=== PATIENT | male | born 1955 | race Caucasian/White ===

== ENCOUNTER 2020-11-18 09:15 | Outpatient (RCR) | payer MEDICARE, SELFPAY ==
[2020-10-21 10:11] VITALS: BP 178/97; PULSE 89; RESP 18; TEMP 36.9; BMI 25.6
--- NOTE | 2020-10-21 13:06 | HP.PCM_ITS ---
(1) Ulcer of right foot with fat layer exposed Status: Chronic Code(s): L97.512 - Non-pressure chronic ulcer of other part of right foot with fat layer exposed History of Present Illness Date of Service: 10/21/20 Chief Complaint: Non healing right foot ulcer History of Wound: Mr. Fregoso is a 35-year-old who was referred here by his primary care physician due to nonhealing right foot ulcer. Sustained ulcer in August from frostbite. He states that he has tried to manage it at home however area left has shown no significant improvement. Most of the ulcer is healed. History of diabetes however lost a significant amount of weight and is currently not on any medication. Maintains a very active lifestyle. Denies chills, fever otherwise feeling of unwell. Past Medical History Past Medical History: Chronic Problems Ulcer of right foot with fat layer exposed (Chronic) Allergies/Adverse Reactions: Allergies No Known Allergies Allergy (Verified 05/12/15 09:04) Home Medications: Ambulatory Orders Medication Instructions Recorded Vit B12/Intrinsic Fact/Folate 10/21/20 [Intrinsi V76-Rupqbo Tablet] Smoking Status: Former smoker Review of Systems Constitutional: Denies: Anorexia, Chills, Fever, Malaise, Weakness Eyes: Denies: Blurred vision, Pain, Redness HEENT: Denies: Difficulty Hearing, Difficulty Swallowing, Head Aches, Sinus Drainage Cardiovascular: Denies: Chest Pain, Claudication, Chest Pressure, Orthopnea Respiratory: Denies: Cough, Hemoptysis, Pleuritic Pain Gastrointestinal: Denies: Abdominal Pain, Hematemesis, Vomiting Genitourinary: Denies: Hematuria Skin: Denies: Jaundice - Physical Exam Vital Signs Temp Pulse Resp BP 98.4 F 89 18 178/97 H 10/21/20 10:11 10/21/20 10:11 10/21/20 10:11 10/21/20 10:11 General: Alert, Oriented x3, Cooperative, No apparent distress HEENT: Atraumatic, Normocephalic Oral: Moist Mucosa Neck: Supple Lungs: Normal air movement Cardiovascular: Regular rate, Regular Rhythm, Normal S1, Normal S2 Abdomen: Soft, Non Tender Extremities: No cyanosis, No edema Skin: Ulcer/ Wound Wound Measurements and Assessment WC - Nurse 1 - General Ulcer Measurement Start: 10/21/20 10:11 Freq: Status: Active Protocol: Activity Type Activity Date Activity User E-Sign Co-Sign Detail Recorded Client Recorded Date Recorded By Document 10/21/20 10:11 DL [id number] 10/21/20 10:30 DL 10/21/20 10:11 Wound Center Nurse 1 [Ulcer Assessment] #1 R Dorsal -Current Size (cm) - Length 0.6 -Current Size (cm) - Width 0.5 -Current Size (cm) - Depth 0.1 -Total Square Cm 0.30 -Photo Taken Yes -Exudate Amt None Present -Wound Margin Flat & Intact -Granulation Amt None Present (0 %) -Necrosis Amt Small (1-33%) -Necrotic Tissue Type Eschar -Structure Exposed N/A -Texture (Leela-wound Skin Appearance) Scarring -Moisture (Leela-wound Skin Appearance No Abnormality ) -Color (Leela-wound Skin Appearance) No Abnormality, Rubor -Temperature (Leela-wound Skin No Abnormality Appearance) (Pt Warm) -Tenderness on Palpation (Leela-wound No Skin Appearance) -Ulcer Cleansing Rinsed/ Irrigated with Saline -Foul Odor after Cleansing No -Anesthetic Used 4% Lidocaine Solution WC - Nurse 2 - General Ulcer CM Notes Start: 10/21/20 10:11 Freq: Status: Active Protocol: Activity Type Activity Date Activity User E-Sign Co-Sign Detail Recorded Client Recorded Date Recorded By Document 10/21/20 11:04 MW [id number] 10/21/20 11:12 MW 10/21/20 11:04 Wound Center Nurse 2 [Procedure/Treatment] -Time 11:04 -Correct Patient Yes -Correct Side, Site, Position Yes -Correct Procedure Yes -Procedure Performed Yes -Type of Procedure Debridement -Clinical Debridement Subcutaneous -Tissue Removed Subcutaneous -Post Debridement (cm) - Length 0.9 -Post Debridement (cm) - Width 0.6 -Post Debridement (cm) - Depth 0.1 -Total Square (Post) (cm) 0.54 -Area of Debridement (cm) - Length 0.9 -Area of Debridement (cm) - Width 0.6 -Total Square (Area) (cm) 0.54 -Tunneling No -Undermining/Tunneling No -Circular Undermining No -Wound/Ulcer Outcome Not Healed -Ulcer Cleansing Rinsed/ Irrigated with Saline -Foul Odor after Cleansing No -Bioengineered Tissue No -Bleeding Controlled with Pressure -Offloading No -Treatment Response Procedure Tolerated Well -Debridement - Subq, 1st 20sq cm Yes [See Physician Procedure note for Specifics] Pain Scale: 0-10 Numeric [Pain] -Is Patient Pain Free? Yes Musculoskeletal: No Muscle Wasting Neurological: Cranial nerves II-XII grossly intact Psych/Mental Status: Normal Affect Debridement Note Post-Debridement Measurements/Treatment WC - Nurse 2 - General Ulcer CM Notes Start: 10/21/20 10:11 Freq: Status: Active Protocol: Activity Type Activity Date Activity User E-Sign Co-Sign Detail Recorded Client Recorded Date Recorded By Document 10/21/20 11:04 MW [id number] 10/21/20 11:12 MW 10/21/20 11:04 Wound Center Nurse 2 #1 R Dorsal -Time 11:04 -Correct Patient Yes -Correct Side, Site, Position Yes -Correct Procedure Yes -Procedure Performed Yes -Type of Procedure Debridement -Clinical Debridement Subcutaneous -Tissue Removed Subcutaneous -Post Debridement (cm) - Length 0.9 -Post Debridement (cm) - Width 0.6 -Post Debridement (cm) - Depth 0.1 -Total Square (Post) (cm) 0.54 -Area of Debridement (cm) - Length 0.9 -Area of Debridement (cm) - Width 0.6 -Total Square (Area) (cm) 0.54 -Tunneling No -Undermining/Tunneling No -Circular Undermining No -Wound/Ulcer Outcome Not Healed -Ulcer Cleansing Rinsed/ Irrigated with Saline -Foul Odor after Cleansing No -Bioengineered Tissue No -Bleeding Controlled with Pressure -Offloading No -Treatment Response Procedure Tolerated Well -Debridement - Subq, 1st 20sq cm Yes Pain Scale: 0-10 Numeric Is Patient Pain Free? Yes Wound debrided: Right dorsal foot Type of Debridement: Excisional debridement Anesthesia Used: 4% Lidocaine Solution Depth: Down to and including healthy tissue, in the subcutaneous layer Percentage of wound debrided: 100 Instrument Used: 3mm curette, Forceps Tissue Removed: Slough and devitalized tissue Severity: Fat Layer Exposed Bleeding Controlled with: Pressure Patient tolerated procedure well Assessment/Plan Active Problems Ulcer of right foot with fat layer exposed (Chronic) Assessment: Right dorsal foot ulcer following frostbite. Plan: Debridement done as documented above, procedure was well-tolerated. Promogran daily with Adaptic over top. Elevate lower extremities when seated and in bed. Increase protein intake. Vitamin C and zinc also recommended. His questions were answered and he was advised to call with any further questions or concerns. Follow-up in a week. This note was generated with [employer] dictation software. It may contain incorrect words, spelling, and punctuation that were not noted in checking the note before signing. Multi Select Codes - Visit Charges Office Visit/Consults: 80237 OV L3 New - Integumentary Integumentary CPT Codes: 16763 Antoinette subq tissue 20 sq cm/<
[2020-10-28 08:13] VITALS: BP 160/85; PULSE 91; RESP 17; TEMP 36.3; BMI 25.6
--- NOTE | 2020-10-28 08:59 | PCM.WC.PN ---
(1) Ulcer of right foot with fat layer exposed Status: Chronic Code(s): L97.512 - Non-pressure chronic ulcer of other part of right foot with fat layer exposed Type of Wound Date of Service: 10/28/20 Chief Complaint: Non healing right foot ulcer History of Wound: Mr. Fregoso is a 35-year-old who was referred here by his primary care physician due to nonhealing right foot ulcer. Sustained ulcer in August from frostbite. He states that he has tried to manage it at home however area left has shown no significant improvement. Most of the ulcer is healed. History of diabetes however lost a significant amount of weight and is currently not on any medication. Maintains a very active lifestyle. Denies chills, fever otherwise feeling of unwell. Progress of Wound: Some improvement noted. He denies any new concerns at this time. - Physical Exam Vital Signs Temp Pulse Resp BP 97.3 F L 91 17 160/85 H 10/28/20 08:13 10/28/20 08:13 10/28/20 08:13 10/28/20 08:13 General: Alert, Oriented x3, Cooperative, No apparent distress HEENT: Atraumatic, Normocephalic Oral: Moist Mucosa Neck: Supple Lungs: Normal air movement Extremities: No cyanosis Skin: Ulcer/ Wound Wound Measurements and Assessment WC - Nurse 1 - General Ulcer Measurement Start: 10/21/20 10:11 Freq: Status: Active Protocol: Activity Type Activity Date Activity User E-Sign Co-Sign Detail Recorded Client Recorded Date Recorded By Document 10/28/20 08:13 MS [id number] 10/28/20 08:19 MS 10/28/20 08:13 Wound Center Nurse 1 [Ulcer Assessment] #1 R Dorsal -Current Size (cm) - Length 0.8 -Current Size (cm) - Width 0.4 -Current Size (cm) - Depth 0.2 -Total Square Cm 0.32 -Exudate Amt Small -Exudate Type Serous -Wound Margin Distinct, Outline Attached -Granulation Amt Small (1-33%) -Slough/Fibrin Yes -Necrosis Amt Medium (34-66%) -Texture (Leela-wound Skin Appearance) No Abnormality -Moisture (Leela-wound Skin Appearance No Abnormality ) -Color (Leela-wound Skin Appearance) No Abnormality -Temperature (Leela-wound Skin No Abnormality Appearance) (Pt Warm) -Tenderness on Palpation (Leela-wound No Skin Appearance) -Ulcer Cleansing Rinsed/ Irrigated with Saline -Foul Odor after Cleansing No -Anesthetic Used 4% Lidocaine Solution WC - Nurse 2 - General Ulcer CM Notes Start: 10/21/20 10:11 Freq: Status: Active Protocol: Activity Type Activity Date Activity User E-Sign Co-Sign Detail Recorded Client Recorded Date Recorded By Document 10/28/20 08:41 MW [id number] 10/28/20 08:47 MW 10/28/20 08:41 Wound Center Nurse 2 [Procedure/Treatment] -Time 08:42 -Correct Patient Yes -Correct Side, Site, Position Yes -Correct Procedure Yes -Procedure Performed Yes -Type of Procedure Debridement -Clinical Debridement Subcutaneous -Tissue Removed Subcutaneous -Post Debridement (cm) - Length 0.6 -Post Debridement (cm) - Width 0.6 -Post Debridement (cm) - Depth 0.1 -Total Square (Post) (cm) 0.36 -Area of Debridement (cm) - Length 0.6 -Area of Debridement (cm) - Width 0.6 -Total Square (Area) (cm) 0.36 -Tunneling No -Undermining/Tunneling No -Circular Undermining No -Wound/Ulcer Outcome Not Healed -Ulcer Cleansing Rinsed/ Irrigated with Saline -Foul Odor after Cleansing No -Bioengineered Tissue No -Bleeding Controlled with Pressure -Offloading No -Treatment Response Procedure Tolerated Well -Debridement - Subq, 1st 20sq cm Yes [See Physician Procedure note for Specifics] Pain Scale: 0-10 Numeric [Pain] -Is Patient Pain Free? Yes Musculoskeletal: No Muscle Wasting Neurological: Cranial nerves II-XII grossly intact Psych/Mental Status: Normal Affect Debridement Note Post-Debridement Measurements/Treatment - Nurse 2 - General Ulcer CM Notes Start: 10/21/20 10:11 Freq: Status: Active Protocol: Activity Type Activity Date Activity User E-Sign Co-Sign Detail Recorded Client Recorded Date Recorded By Document 10/21/20 11:04 MW [id number] 10/21/20 11:12 MW Document 10/28/20 08:41 MW [id number] 10/28/20 08:47 MW 10/21/20 10/28/20 11:04 08:41 Wound Center Nurse 2 #1 R Dorsal -Time 11:04 08:42 -Correct Patient Yes Yes -Correct Side, Site, Position Yes Yes -Correct Procedure Yes Yes -Procedure Performed Yes Yes -Type of Procedure Debridement Debridement -Clinical Debridement Subcutaneous Subcutaneous -Tissue Removed Subcutaneous Subcutaneous -Post Debridement (cm) - Length 0.9 0.6 -Post Debridement (cm) - Width 0.6 0.6 -Post Debridement (cm) - Depth 0.1 0.1 -Total Square (Post) (cm) 0.54 0.36 -Area of Debridement (cm) - Length 0.9 0.6 -Area of Debridement (cm) - Width 0.6 0.6 -Total Square (Area) (cm) 0.54 0.36 -Tunneling No No -Undermining/Tunneling No No -Circular Undermining No No -Wound/Ulcer Outcome Not Healed Not Healed -Ulcer Cleansing Rinsed/ Rinsed/ Irrigated with Irrigated with Saline Saline -Foul Odor after Cleansing No No -Bioengineered Tissue No No -Bleeding Controlled with Pressure Pressure -Offloading No No -Treatment Response Procedure Procedure Tolerated Well Tolerated Well -Debridement - Subq, 1st 20sq cm Yes Yes Pain Scale: 0-10 Numeric Is Patient Pain Free? Yes Yes WC - Nurse 3 - General Ulcer D/C NN Start: 10/21/20 10:11 Freq: Status: Active Protocol: Activity Type Activity Date Activity User E-Sign Co-Sign Detail Recorded Client Recorded Date Recorded By Document 10/21/20 11:15 PL [id number] 10/22/20 05:36 PL 10/21/20 11:15 Wound Care Nurse 3 #1 R Dorsal -Ulcer Cleansing Rinsed/ Irrigated with Saline -Foul Odor after Cleansing No -Primary Dressing Applied Promogran -Other Dressing Adaptic -Primary Dressing Covered/Secured with Dry Gauze, Secured with Tape -Promogran 1 Pain Scale: 0-10 Numeric Is Patient Pain Free? Yes Wound debrided: Right Foot ( Dorsal ) Type of Debridement: Excisional debridement Anesthesia Used: 4% Lidocaine Solution Depth: Down to and including healthy tissue, in the subcutaneous layer Percentage of wound debrided: 100 Instrument Used: 3mm curette Tissue Removed: Slough and devitalized tissue Severity: Fat Layer Exposed Amount of bleeding with debridement: Mild Bleeding Controlled with: Pressure Patient tolerated procedure well Assessment/Plan Active Problems Ulcer of right foot with fat layer exposed (Chronic) Assessment: Right dorsal foot ulcer following frostbite. Plan: Debridement done as documented above, procedure was well-tolerated. Cultures taken due to increased pain with debridement. Continue Promogran daily with Adaptic over top. Elevate lower extremities when seated and in bed. Increase protein intake. Vitamin C and zinc also recommended. His questions were answered and he was advised to call with any further questions or concerns. Follow-up in a week. This note was generated with [employer] dictation software. It may contain incorrect words, spelling, and punctuation that were not noted in checking the note before signing. [id number]: [id number] Antoinette subq tissue 20 sq cm/<
[2020-11-04 09:17] VITALS: BP 145/81; PULSE 80; TEMP 36.6; BMI 25.6
--- NOTE | 2020-11-04 13:55 | PCM.WC.PN ---
(1) Ulcer of right foot with fat layer exposed Status: Chronic Code(s): L97.512 - Non-pressure chronic ulcer of other part of right foot with fat layer exposed Type of Wound Date of Service: 11/04/20 Chief Complaint: Non healing right foot ulcer History of Wound: Mr. Fregoso is a 35-year-old who was referred here by his primary care physician due to nonhealing right foot ulcer. Sustained ulcer in August from frostbite. He states that he has tried to manage it at home however area left has shown no significant improvement. Most of the ulcer is healed. History of diabetes however lost a significant amount of weight and is currently not on any medication. Maintains a very active lifestyle. Denies chills, fever otherwise feeling of unwell. Progress of Wound: No new concerns at this time. Cultures with no growth. - Physical Exam Vital Signs Temp Pulse Resp BP 97.8 F 80 17 145/81 H 11/04/20 09:17 11/04/20 09:17 10/28/20 08:13 11/04/20 09:17 General: Alert, Oriented x3, Cooperative, No apparent distress HEENT: Atraumatic, Normocephalic Oral: Moist Mucosa Neck: Supple Lungs: Normal air movement Extremities: No cyanosis Skin: Ulcer/ Wound Wound Measurements and Assessment WC - Nurse 1 - General Ulcer Measurement Start: 10/21/20 10:11 Freq: Status: Active Protocol: Activity Type Activity Date Activity User E-Sign Co-Sign Detail Recorded Client Recorded Date Recorded By Document 11/04/20 09:17 [email or web address] [id number] 11/04/20 09:20 [email or web address] 11/04/20 09:17 Wound Center Nurse 1 [Ulcer Assessment] #1 R Dorsal -Current Size (cm) - Length 0.5 -Current Size (cm) - Width 0.5 -Current Size (cm) - Depth 0.1 -Total Square Cm 0.25 -Exudate Amt Small -Exudate Type Serosanguineous -Wound Margin Distinct, Outline Attached -Granulation Amt Medium (34-66%) -Granulation Quality [place] -Necrosis Amt Small (1-33%) -Necrotic Tissue Type Adherent Slough -Texture (Leela-wound Skin Appearance) Assessed, Scarring -Moisture (Leela-wound Skin Appearance No Abnormality, ) Assessed -Color (Leela-wound Skin Appearance) No Abnormality, Assessed -Temperature (Leela-wound Skin No Abnormality Appearance) (Pt Warm) -Tenderness on Palpation (Leela-wound No Skin Appearance) -Ulcer Cleansing Rinsed/ Irrigated with Saline -Foul Odor after Cleansing No -Anesthetic Used 4% Lidocaine Solution TRA - Nurse 2 - General Ulcer CM Notes Start: 10/21/20 10:11 Freq: Status: Active Protocol: Activity Type Activity Date Activity User E-Sign Co-Sign Detail Recorded Client Recorded Date Recorded By Document 11/04/20 09:50 MW [id number] 11/04/20 09:53 MW 11/04/20 09:50 Wound Center Nurse 2 [Procedure/Treatment] -Time 09:51 -Correct Patient Yes -Correct Side, Site, Position Yes -Correct Procedure Yes -Procedure Performed Yes -Type of Procedure Debridement -Clinical Debridement Subcutaneous -Tissue Removed Subcutaneous -Post Debridement (cm) - Length 0.8 -Post Debridement (cm) - Width 0.7 -Post Debridement (cm) - Depth 0.1 -Total Square (Post) (cm) 0.56 -Area of Debridement (cm) - Length 0.8 -Area of Debridement (cm) - Width 0.7 -Total Square (Area) (cm) 0.56 -Tunneling No -Undermining/Tunneling No -Circular Undermining No -Wound/Ulcer Outcome Not Healed -Ulcer Cleansing Rinsed/ Irrigated with Saline -Foul Odor after Cleansing No -Bioengineered Tissue No -Bleeding Controlled with Pressure -Offloading No -Treatment Response Procedure Tolerated Well -Debridement - Subq, 1st 20sq cm Yes [See Physician Procedure note for Specifics] Pain Scale: 0-10 Numeric [Pain] -Is Patient Pain Free? Yes TRA - Nurse 3 - General Ulcer D/C NN Start: 10/21/20 10:11 Freq: Status: Active Protocol: Activity Type Activity Date Activity User E-Sign Co-Sign Detail Recorded Client Recorded Date Recorded By Document 11/04/20 09:55 MW [id number] 11/04/20 09:56 MW 11/04/20 09:55 Wound Care Nurse 3 [Wound Dressing] #1 R Dorsal -Ulcer Cleansing Rinsed/ Irrigated with Saline -Foul Odor after Cleansing No -Negative Pressure Wound Therapy N/A -Primary Dressing Applied NonAdherent Contact Layer, Promogran -Primary Dressing Covered/Secured Dry Gauze, with Secured with Tape -Promogran 1 [Post Procedure Tolerated] -Treatment Response Procedure Tolerated Well Pain Scale: 0-10 Numeric [Pain] -Is Patient Pain Free? Yes Teaching: Wound Center [Wound Center Education] (Items with an * have Printed Materials Available- Please identify what is given to patient under the Teaching materials given to patient and caregiver Section. Dressing Your Wound -Person Taught Patient -Teaching Method Discussion -Response to teaching Verbalize understanding WC - Visit Discharge [Visit Discharge Information] -Discharge Condition Stable -Ambulatory Status Ambulatory -Transportation Private Auto -Accompanied by self -Medication Reconcilliation completed No & provided to patient/care provider -Clinical Summary of Care Provided Yes Musculoskeletal: No Muscle Wasting Neurological: Cranial nerves II-XII grossly intact Psych/Mental Status: Normal Affect Debridement Note Post-Debridement Measurements/Treatment WC - Nurse 2 - General Ulcer CM Notes Start: 10/21/20 10:11 Freq: Status: Active Protocol: Activity Type Activity Date Activity User E-Sign Co-Sign Detail Recorded Client Recorded Date Recorded By Document 10/21/20 11:04 MW [id number] 10/21/20 11:12 MW Document 10/28/20 08:41 MW [id number] 10/28/20 08:47 MW Document 11/04/20 09:50 MW [id number] 11/04/20 09:53 MW 10/21/20 10/28/20 11/04/20 11:04 08:41 09:50 Wound Center Nurse 2 #1 R Dorsal -Time 11:04 08:42 09:51 -Correct Patient Yes Yes Yes -Correct Side, Site, Position Yes Yes Yes -Correct Procedure Yes Yes Yes -Procedure Performed Yes Yes Yes -Type of Procedure Debridement Debridement Debridement -Clinical Debridement Subcutaneous Subcutaneous Subcutaneous -Tissue Removed Subcutaneous Subcutaneous Subcutaneous -Post Debridement (cm) - Length 0.9 0.6 0.8 -Post Debridement (cm) - Width 0.6 0.6 0.7 -Post Debridement (cm) - Depth 0.1 0.1 0.1 -Total Square (Post) (cm) 0.54 0.36 0.56 -Area of Debridement (cm) - Length 0.9 0.6 0.8 -Area of Debridement (cm) - Width 0.6 0.6 0.7 -Total Square (Area) (cm) 0.54 0.36 0.56 -Tunneling No No No -Undermining/Tunneling No No No -Circular Undermining No No No -Wound/Ulcer Outcome Not Healed Not Healed Not Healed -Ulcer Cleansing Rinsed/ Rinsed/ Rinsed/ Irrigated with Irrigated with Irrigated with Saline Saline Saline -Foul Odor after Cleansing No No No -Bioengineered Tissue No No No -Bleeding Controlled with Pressure Pressure Pressure -Offloading No No No -Treatment Response Procedure Procedure Procedure Tolerated Well Tolerated Well Tolerated Well -Debridement - Subq, 1st 20sq cm Yes Yes Yes Pain Scale: 0-10 Numeric Is Patient Pain Free? Yes Yes Yes - Nurse 3 - General Ulcer D/C NN Start: 10/21/20 10:11 Freq: Status: Active Protocol: Activity Type Activity Date Activity User E-Sign Co-Sign Detail Recorded Client Recorded Date Recorded By Document 10/21/20 11:15 PL [id number] 10/22/20 05:36 PL Document 10/28/20 09:00 MT [id number] 10/28/20 09:01 MT Document 11/04/20 09:55 MW [id number] 11/04/20 09:56 MW 10/21/20 10/28/20 11/04/20 11:15 09:00 09:55 Wound Care Nurse 3 #1 R Dorsal -Ulcer Cleansing Rinsed/ Rinsed/ Irrigated with Irrigated with Saline Saline -Foul Odor after Cleansing No No -Negative Pressure Wound Therapy N/A -Primary Dressing Applied Promogran Promogran NonAdherent Contact Layer, Promogran -Other Dressing Adaptic -Primary Dressing Covered/Secured with Dry Gauze, Dry Gauze,Dry Dry Gauze, Secured with Gauze & Roll Secured with Tape Gauze,Secured Tape with Tape -Promogran 1 1 1 Treatment Response Procedure Tolerated Well Pain Scale: 0-10 Numeric Is Patient Pain Free? Yes Yes Teaching: Wound Center Dressing Your Wound -Person Taught Patient -Teaching Method Discussion -Response to teaching Verbalize understanding WC - Visit Discharge Discharge Condition Stable Stable Ambulatory Status Ambulatory Ambulatory Transportation Private Auto Private Auto Accompanied by self Medication Reconcilliation completed & No No provided to patient/care provider Clinical Summary of Care Provided Yes Yes Wound debrided: Right dorsal foot Type of Debridement: Excisional debridement Anesthesia Used: 4% Lidocaine Solution Depth: Down to and including healthy tissue, in the subcutaneous layer Percentage of wound debrided: 100 Instrument Used: - - 2mm Tissue Removed: Slough and devitalized tissue Severity: Fat Layer Exposed Amount of bleeding with debridement: Mild Bleeding Controlled with: Pressure Patient tolerated procedure well Assessment/Plan Active Problems Ulcer of right foot with fat layer exposed (Chronic) Assessment: Right dorsal foot ulcer following frostbite. Plan: Debridement done as documented above, procedure was well-tolerated. Cultures with no growth.Continue Promogran daily with Adaptic over top. Elevate lower extremities when seated and in bed. Increase protein intake. Vitamin C and zinc also recommended. His questions were answered and he was advised to call with any further questions or concerns. Follow-up in a week. This note was generated with [employer] dictation software. It may contain incorrect words, spelling, and punctuation that were not noted in checking the note before signing. [id number]: [id number] Antoinette subq tissue 20 sq cm/<
[2020-11-11 08:24] VITALS: BP 164/95; PULSE 105; RESP 16; TEMP 37; BMI 25.6
--- NOTE | 2020-11-11 09:40 | PCM.WC.PN ---
(1) Ulcer of right foot with fat layer exposed Status: Chronic Code(s): L97.512 - Non-pressure chronic ulcer of other part of right foot with fat layer exposed Type of Wound Date of Service: 11/11/20 Chief Complaint: Non healing right foot ulcer History of Wound: Mr. Fregoso is a 35-year-old who was referred here by his primary care physician due to nonhealing right foot ulcer. Sustained ulcer in August from frostbite. He states that he has tried to manage it at home however area left has shown no significant improvement. Most of the ulcer is healed. History of diabetes however lost a significant amount of weight and is currently not on any medication. Maintains a very active lifestyle. Denies chills, fever otherwise feeling of unwell. Progress of Wound: No new concerns at this time. Some improvement noted. - Physical Exam Vital Signs Temp Pulse Resp BP 98.6 F 105 H 16 164/95 H 11/11/20 08:24 11/11/20 08:24 11/11/20 08:24 11/11/20 08:24 General: Alert, Oriented x3, Cooperative, No apparent distress HEENT: Atraumatic, Normocephalic Oral: Moist Mucosa Neck: Supple Lungs: Normal air movement Extremities: No cyanosis Skin: Ulcer/ Wound Wound Measurements and Assessment WC - Nurse 1 - General Ulcer Measurement Start: 10/21/20 10:11 Freq: Status: Active Protocol: Activity Type Activity Date Activity User E-Sign Co-Sign Detail Recorded Client Recorded Date Recorded By Document 11/11/20 08:24 MW [id number] 11/11/20 08:30 MW 11/11/20 08:24 Wound Center Nurse 1 [Ulcer Assessment] #1 R Dorsal -Current Size (cm) - Length 0.6 -Current Size (cm) - Width 0.5 -Current Size (cm) - Depth 0.1 -Total Square Cm 0.30 -Photo Taken No -Exudate Amt Small -Exudate Type Serosanguineous -Wound Margin Distinct, Outline Attached -Granulation Amt Large (67-100%) -Granulation Quality Pale,[place] -Necrosis Amt None Present (0 %) -Texture (Leela-wound Skin Appearance) Scarring -Moisture (Leela-wound Skin Appearance No Abnormality ) -Color (Leela-wound Skin Appearance) No Abnormality -Temperature (Leela-wound Skin No Abnormality Appearance) (Pt Warm) -Tenderness on Palpation (Leela-wound No Skin Appearance) -Ulcer Cleansing Wound Cleanser -Foul Odor after Cleansing No -Anesthetic Used 4% Lidocaine Solution TRA - Nurse 2 - General Ulcer CM Notes Start: 10/21/20 10:11 Freq: Status: Active Protocol: Activity Type Activity Date Activity User E-Sign Co-Sign Detail Recorded Client Recorded Date Recorded By Document 11/11/20 08:53 MW [id number] 11/11/20 08:55 MW 11/11/20 08:53 Wound Center Nurse 2 [Procedure/Treatment] -Time 08:53 -Correct Patient Yes -Correct Side, Site, Position Yes -Correct Procedure Yes -Procedure Performed Yes -Type of Procedure Debridement -Clinical Debridement Subcutaneous -Tissue Removed Subcutaneous -Post Debridement (cm) - Length 0.6 -Post Debridement (cm) - Width 0.6 -Post Debridement (cm) - Depth 0.1 -Total Square (Post) (cm) 0.36 -Area of Debridement (cm) - Length 0.6 -Area of Debridement (cm) - Width 0.6 -Total Square (Area) (cm) 0.36 -Tunneling No -Undermining/Tunneling No -Circular Undermining No -Wound/Ulcer Outcome Not Healed -Ulcer Cleansing Rinsed/ Irrigated with Saline -Foul Odor after Cleansing No -Bioengineered Tissue No -Bleeding Controlled with Pressure -Offloading No -Treatment Response Procedure Tolerated Well -Debridement - Subq, 1st 20sq cm Yes [See Physician Procedure note for Specifics] Pain Scale: 0-10 Numeric [Pain] -Is Patient Pain Free? Yes TRA [place] Nurse 3 - General Ulcer D/C NN Start: 10/21/20 10:11 Freq: Status: Active Protocol: Activity Type Activity Date Activity User E-Sign Co-Sign Detail Recorded Client Recorded Date Recorded By Document 11/11/20 08:56 MW [id number] 11/11/20 08:57 MW 11/11/20 08:56 Wound Care Nurse 3 [Wound Dressing] #1 R Dorsal -Ulcer Cleansing Rinsed/ Irrigated with Saline -Foul Odor after Cleansing No -Negative Pressure Wound Therapy N/A -Primary Dressing Applied NonAdherent Contact Layer, Promogran -Primary Dressing Covered/Secured Dry Gauze, with Secured with Tape -Promogran 1 [Post Procedure Tolerated] -Treatment Response Procedure Tolerated Well Pain Scale: 0-10 Numeric [Pain] -Is Patient Pain Free? Yes Teaching: Wound Center [Wound Center Education] (Items with an * have Printed Materials Available- Please identify what is given to patient under the Teaching materials given to patient and caregiver Section. Dressing Your Wound -Person Taught Patient -Teaching Method Discussion -Response to teaching Verbalize understanding WC - Visit Discharge [Visit Discharge Information] -Discharge Condition Stable -Ambulatory Status Ambulatory -Transportation Private Auto -Accompanied by self -Medication Reconcilliation completed No & provided to patient/care provider -Clinical Summary of Care Provided Yes Musculoskeletal: No Muscle Wasting Neurological: Cranial nerves II-XII grossly intact Debridement Note Post-Debridement Measurements/Treatment WC - Nurse 2 - General Ulcer CM Notes Start: 10/21/20 10:11 Freq: Status: Active Protocol: Activity Type Activity Date Activity User E-Sign Co-Sign Detail Recorded Client Recorded Date Recorded By Document 10/21/20 11:04 MW [id number] 10/21/20 11:12 MW Document 10/28/20 08:41 MW [id number] 10/28/20 08:47 MW Document 11/04/20 09:50 MW [id number] 11/04/20 09:53 MW Document 11/11/20 08:53 MW [id number] 11/11/20 08:55 MW 10/21/20 10/28/20 11/04/20 11:04 08:41 09:50 Wound Center Nurse 2 #1 R Dorsal -Time 11:04 08:42 09:51 -Correct Patient Yes Yes Yes -Correct Side, Site, Position Yes Yes Yes -Correct Procedure Yes Yes Yes -Procedure Performed Yes Yes Yes -Type of Procedure Debridement Debridement Debridement -Clinical Debridement Subcutaneous Subcutaneous Subcutaneous -Tissue Removed Subcutaneous Subcutaneous Subcutaneous -Post Debridement (cm) - Length 0.9 0.6 0.8 -Post Debridement (cm) - Width 0.6 0.6 0.7 -Post Debridement (cm) - Depth 0.1 0.1 0.1 -Total Square (Post) (cm) 0.54 0.36 0.56 -Area of Debridement (cm) - Length 0.9 0.6 0.8 -Area of Debridement (cm) - Width 0.6 0.6 0.7 -Total Square (Area) (cm) 0.54 0.36 0.56 -Tunneling No No No -Undermining/Tunneling No No No -Circular Undermining No No No -Wound/Ulcer Outcome Not Healed Not Healed Not Healed -Ulcer Cleansing Rinsed/ Rinsed/ Rinsed/ Irrigated with Irrigated with Irrigated with Saline Saline Saline -Foul Odor after Cleansing No No No -Bioengineered Tissue No No No -Bleeding Controlled with Pressure Pressure Pressure -Offloading No No No -Treatment Response Procedure Procedure Procedure Tolerated Well Tolerated Well Tolerated Well -Debridement - Subq, 1st 20sq cm Yes Yes Yes Pain Scale: 0-10 Numeric Is Patient Pain Free? Yes Yes Yes 11/11/20 08:53 Wound Center Nurse 2 #1 R Dorsal -Time 08:53 -Correct Patient Yes -Correct Side, Site, Position Yes -Correct Procedure Yes -Procedure Performed Yes -Type of Procedure Debridement -Clinical Debridement Subcutaneous -Tissue Removed Subcutaneous -Post Debridement (cm) - Length 0.6 -Post Debridement (cm) - Width 0.6 -Post Debridement (cm) - Depth 0.1 -Total Square (Post) (cm) 0.36 -Area of Debridement (cm) - Length 0.6 -Area of Debridement (cm) - Width 0.6 -Total Square (Area) (cm) 0.36 -Tunneling No -Undermining/Tunneling No -Circular Undermining No -Wound/Ulcer Outcome Not Healed -Ulcer Cleansing Rinsed/ Irrigated with Saline -Foul Odor after Cleansing No -Bioengineered Tissue No -Bleeding Controlled with Pressure -Offloading No -Treatment Response Procedure Tolerated Well -Debridement - Subq, 1st 20sq cm Yes Pain Scale: 0-10 Numeric Is Patient Pain Free? Yes - Nurse 3 - General Ulcer D/C NN Start: 10/21/20 10:11 Freq: Status: Active Protocol: Activity Type Activity Date Activity User E-Sign Co-Sign Detail Recorded Client Recorded Date Recorded By Document 10/21/20 11:15 PL [id number] 10/22/20 05:36 PL Document 10/28/20 09:00 MT [id number] 10/28/20 09:01 MT Document 11/04/20 09:55 MW [id number] 11/04/20 09:56 MW Document 11/11/20 08:56 MW [id number] 11/11/20 08:57 MW 10/21/20 10/28/20 11/04/20 11:15 09:00 09:55 Wound Care Nurse 3 #1 R Dorsal -Ulcer Cleansing Rinsed/ Rinsed/ Irrigated with Irrigated with Saline Saline -Foul Odor after Cleansing No No -Negative Pressure Wound Therapy N/A -Primary Dressing Applied Promogran Promogran NonAdherent Contact Layer, Promogran -Other Dressing Adaptic -Primary Dressing Covered/Secured with Dry Gauze, Dry Gauze,Dry Dry Gauze, Secured with Gauze & Roll Secured with Tape Gauze,Secured Tape with Tape -Promogran 1 1 1 Treatment Response Procedure Tolerated Well Pain Scale: 0-10 Numeric Is Patient Pain Free? Yes Yes Teaching: Wound Center Dressing Your Wound -Person Taught Patient -Teaching Method Discussion -Response to teaching Verbalize understanding WC - Visit Discharge Discharge Condition Stable Stable Ambulatory Status Ambulatory Ambulatory Transportation Private Auto Private Auto Accompanied by self Medication Reconcilliation completed & No No provided to patient/care provider Clinical Summary of Care Provided Yes Yes 11/11/20 08:56 Wound Care Nurse 3 #1 R Dorsal -Ulcer Cleansing Rinsed/ Irrigated with Saline -Foul Odor after Cleansing No -Negative Pressure Wound Therapy N/A -Primary Dressing Applied NonAdherent Contact Layer, Promogran -Other Dressing -Primary Dressing Covered/Secured with Dry Gauze, Secured with Tape -Promogran 1 Treatment Response Procedure Tolerated Well Pain Scale: 0-10 Numeric Is Patient Pain Free? Yes Teaching: Wound Center Dressing Your Wound -Person Taught Patient -Teaching Method Discussion -Response to teaching Verbalize understanding WC - Visit Discharge Discharge Condition Stable Ambulatory Status Ambulatory Transportation Private Auto Accompanied by self Medication Reconcilliation completed & No provided to patient/care provider Clinical Summary of Care Provided Yes Wound debrided: R Dorsal foot Type of Debridement: Excisional debridement Anesthesia Used: 4% Lidocaine Solution Depth: Down to and including healthy tissue, in the subcutaneous layer Percentage of wound debrided: 100 Instrument Used: 3mm curette Tissue Removed: Slough and devitalized tissue Severity: Fat Layer Exposed Amount of bleeding with debridement: Mild Bleeding Controlled with: Pressure Patient tolerated procedure well Assessment/Plan Active Problems Ulcer of right foot with fat layer exposed (Chronic) Assessment: Right dorsal foot ulcer following frostbite. Plan: Debridement done as documented above, procedure was well-tolerated. Some improvement noted. Continue Promogran daily with Adaptic over top. Elevate lower extremities when seated and in bed. Increase protein intake. Vitamin C and zinc also recommended. His questions were answered and he was advised to call with any further questions or concerns. Follow-up in a week. This note was generated with [employer] software. It may contain incorrect words, spelling, and punctuation that were not noted in checking the note before signing. 111xxx-113xx: [id number] Antoinette subq tissue 20 sq cm/<
[2020-11-18 09:11] VITALS: BP 158/74; PULSE 92; TEMP 36.8; BMI 25.6
--- NOTE | 2020-11-18 12:31 | PN.PCM_ITS ---
History of Present Illness Date of Service: 11/18/20 Chief Complaint: Non healing right foot ulcer History of Wound: Mr. Fregoso is a 35-year-old who was referred here by his primary care physician due to nonhealing right foot ulcer. Sustained ulcer in August from frostbite. He states that he has tried to manage it at home however area left has shown no significant improvement. Most of the ulcer is healed. History of diabetes however lost a significant amount of weight and is currently not on any medication. Maintains a very active lifestyle. Denies chills, fever otherwise feeling of unwell. Subjective Subjective: He denies any new concerns at this time. Ulcer said to be improving. Objective Data Objective Data Vital Signs: Vital Signs Temp Pulse Resp BP 98.2 F 92 16 158/74 H 11/18/20 09:11 11/18/20 09:11 11/11/20 08:24 11/18/20 09:11 Oxygen Delivery Method Room Air Weight: 168 lb 9.299 oz Body Mass Index (BMI) 25.6 Finger Stick Blood Glucose 127 Lab / Micro Data Micro: Microbiology 10/28/20 08:45 Wound Abcess - Right Foot Gram Stain - Final 10/28/20 08:45 Wound Abcess - Right Foot Wound Culture - Final No growth aerobically. 10/28/20 08:45 Wound Abcess - Right Foot Anaerobic Culture - Final No anaerobic bacteria isolated. Exam Physical Exam Const alert, oriented x3 and no apparent distress General Appearance: cooperative and comfortable HEENT normocephalic, head/scalp atraumatic and hearing grossly normal bilaterally Eyes EOMs intact bilaterally Neck full ROM and supple General: normal visual inspection Resp normal respiratory effort and normal air movement Extremity normal to inspection and full ROM Skin Wounds: wounds noted Psych mental status grossly normal Appearance: grossly normal Attitude: calm Assessment and Debridement #1 R Dorsal: Post-Debridement Measurements/Treatment - Nurse 1 - General Ulcer Assessment Start: 10/21/20 10:11 Freq: Status: Active Protocol: LIV Activity Type Activity Date Activity User E-Sign Co-Sign Detail Recorded Client Recorded Date Recorded By Document 11/18/20 09:11 [email or web address] [id number] 11/18/20 09:14 [email or web address] 11/18/20 09:11 - Today's Visit Information Type of service Follow-up Visit (Physician/[employer] OPERATOR ) Arrival Mode Ambulatory Patient Identification Verified (Name & Yes ) Patient Requires Transmission-Based No Precautions Height and Weight Body Mass Index (BMI) 25.6 BMI Classification Overweight Vital Signs Temperature (97.8 F-99.1 F) 98.2 F Temperature Source Temporal Pulse Rate (60-100) 92 Pulse Location Monitor Blood Pressure (90/60-120/80) 158/74 H Blood Pressure Mean (mm Hg) 102 Source Monitor Position Semi-Fowlers Blood Pressure Location Right Arm History Since Last Visit- (Skip if this is Patient's initial visit) Have you changed medications since your No last visit? Any new allergies or adverse reactions No Had a fall/change in ADL's that may No increase risk of falls Signs or symptoms of abuse and/or No neglect since last visit Have you been in the hospital since your Yes last visit? Has dressing in place as prescribed Yes Has compression in place as prescribed Yes Has offloadiing in place as prescribed N/A Experienced any changes in pain level or No management Left Footwear Regular Shoe Right Footwear Regular Shoe Pain Scale: 0-10 Numeric Is Patient Pain Free? Yes WC - Nurse 2 - General Ulcer CM Notes Start: 10/21/20 10:11 Freq: Status: Active Protocol: Activity Type Activity Date Activity User E-Sign Co-Sign Detail Recorded Client Recorded Date Recorded By Document 11/18/20 09:41 MW [id number] 11/18/20 09:44 MW 11/18/20 09:41 Wound Center Nurse 2 #1 R Dorsal -Time 09:42 -Correct Patient Yes -Correct Side, Site, Position Yes -Correct Procedure Yes -Procedure Performed Yes -Type of Procedure Debridement -Clinical Debridement Subcutaneous -Tissue Removed Subcutaneous -Post Debridement (cm) - Length 0.6 -Post Debridement (cm) - Width 0.4 -Post Debridement (cm) - Depth 0.1 -Total Square (Post) (cm) 0.24 -Area of Debridement (cm) - Length 0.6 -Area of Debridement (cm) - Width 0.4 -Total Square (Area) (cm) 0.24 -Tunneling No -Undermining/Tunneling No -Circular Undermining No -Wound/Ulcer Outcome Not Healed -Ulcer Cleansing Rinsed/ Irrigated with Saline -Foul Odor after Cleansing No -Bioengineered Tissue No -Bleeding Controlled with Pressure -Offloading No -Treatment Response Procedure Tolerated Well -Debridement - Subq, 1st 20sq cm Yes Pain Scale: 0-10 Numeric Is Patient Pain Free? Yes Wound Debrided: Right dorsal foot Type of Debridement: Excisional debridement Anesthesia Used: 4% Lidocaine Solution Depth: Down to and including healthy tissue and in the subcutaneous layer Percentage of Wound Debrided: 100 Instrument Used: 3mm curette Tissue Removed: Slough and devitalized tissue Severity: Fat Layer Exposed Amt of Bleeding w/Debridement: Mild Bleeding Controlled with: Pressure Patient Tolerated Procedure: Patient tolerated procedure well Assessment & Plan Assessment/Plan (1) Ulcer of right foot with fat layer exposed: Status: Chronic Code(s): L97.512 - Non-pressure chronic ulcer of other part of right foot with fat layer exposed Plan: Debridement done as documented above, procedure was well-tolerated. Some improvement noted. Continue Promogran daily with Adaptic over top. Elevate lower extremities when seated and in bed. Increase protein intake. Vitamin C and zinc also recommended. His questions were answered and he was advised to call with any further questions or concerns. Follow-up in a week. This note was generated with [employer] dictation software. It may contain incorrect words, spelling, and punctuation that were not noted in checking the note before signing. Charges/Coding 111xxx-113xx: [id number] Antoinette subq tissue 20 sq cm/<
== END 2020-11-19 23:59 ==
LOC: WC 09:15
PROVIDERS: PCP Student in an Organized Health Care Education/Training Program; Visit Provider Internal Medicine
DX: L97.512 Non-pressure chronic ulcer of other part of right foot with fat layer exposed (principal); T33.821S Superficial frostbite of right foot, sequela; X31.XXXS Exposure to excessive natural cold, sequela; E11.9 Type 2 diabetes mellitus without complications; Z87.891 Personal history of nicotine dependence
CPT/HCPCS: 11042; 87070; 87075; 87205; 99203; G0463

== ENCOUNTER 2020-12-16 09:00 | Outpatient (RCR) | payer MEDICARE, SELFPAY ==
[2020-11-20 00:14] VITALS: BP 158/74; PULSE 92; RESP 16; TEMP 36.8
[2020-11-25 07:58] VITALS: BP 174/83; PULSE 81; RESP 18; TEMP 36.2; BMI 25.6
--- NOTE | 2020-11-25 08:27 | PN.PCM_ITS ---
History of Present Illness Date of Service: 11/25/20 Chief Complaint: Non healing right foot ulcer History of Wound: Mr. Fregoso is a 35-year-old who was referred here by his primary care physician due to nonhealing right foot ulcer. Sustained ulcer in August from frostbite. He states that he has tried to manage it at home however area left has shown no significant improvement. Most of the ulcer is healed. History of diabetes however lost a significant amount of weight and is currently not on any medication. Maintains a very active lifestyle. Denies chills, fever otherwise feeling of unwell. Subjective Subjective: No new concerns at this time. With improvement. Objective Data Objective Data Vital Signs: Vital Signs Temp Pulse Resp BP 97.1 F L 81 18 174/83 H 11/25/20 07:58 11/25/20 07:58 11/25/20 07:58 11/25/20 07:58 Weight: 168 lb 9.299 oz Body Mass Index (BMI) 25.6 Finger Stick Blood Glucose 127 Assessment & Plan Assessment/Plan (1) Ulcer of right foot with fat layer exposed: PLAN: Debridement done as documented above, procedure was well-tolerated. Some improvement noted. Continue Promogran daily with Adaptic over top. Elevate lower extremities when seated and in bed. Increase protein intake. Vitamin C and zinc also recommended. His questions were answered and he was advised to call with any further questions or concerns. Follow-up in a week. This note was generated with [employer] dictation software. It may contain incorrect words, spelling, and punctuation that were not noted in checking the note before signing. Charges/Coding Procedures Integumentary 111xxx-113xx: [id number] Antoinette subq tissue 20 sq cm/< Physical Exam Const alert, oriented x3 and no apparent distress General Appearance: cooperative, comfortable and well kempt HEENT normocephalic and hearing grossly normal bilaterally Head and Scalp: normal to inspection, normocephalic and atraumatic Eyes EOMs intact bilaterally Neck full ROM and supple General: normal visual inspection Resp normal respiratory effort Effort and Inspection: able to speak in complete sentences Skin Wounds: wounds noted Neuro oriented x3, CN's II-XII intact bilaterally and moves all extremities Debridement Note Debridement Note Post-Debridement Measurements and Additional Note: Post-Debridement Measurements/Treatment WC - Nurse 2 - General Ulcer CM Notes Start: 11/25/20 07:58 Freq: Status: Active Protocol: Activity Type Activity Date Activity User E-Sign Co-Sign Detail Recorded Client Recorded Date Recorded By Document 11/25/20 08:22 MW [id number] 11/25/20 08:24 MW 11/25/20 08:22 Wound Center Nurse 2 #1 R Dorsal -Time 08:22 -Correct Patient Yes -Correct Side, Site, Position Yes -Correct Procedure Yes -Procedure Performed Yes -Type of Procedure Debridement -Clinical Debridement Subcutaneous -Tissue Removed Subcutaneous -Post Debridement (cm) - Length 0.4 -Post Debridement (cm) - Width 0.3 -Post Debridement (cm) - Depth 0.1 -Total Square (Post) (cm) 0.12 -Area of Debridement (cm) - Length 0.4 -Area of Debridement (cm) - Width 0.3 -Total Square (Area) (cm) 0.12 -Tunneling No -Undermining/Tunneling No -Circular Undermining No -Wound/Ulcer Outcome Not Healed -Ulcer Cleansing Rinsed/ Irrigated with Saline -Foul Odor after Cleansing No -Bioengineered Tissue No -Bleeding Controlled with Pressure -Offloading No -Treatment Response Procedure Tolerated Well -Debridement - Subq, 1st 20sq cm Yes Pain Scale: 0-10 Numeric Is Patient Pain Free? Yes Wound debrided: Right foot (dorsal) Type of Debridement: Excisional debridement Anesthesia Used: 4% Lidocaine Solution Depth: Down to and including healthy tissue and in the subcutaneous layer Percentage of wound debrided: 100 Instrument Used: 3mm curette Tissue Removed: Slough and devitalized tissue Severity: Fat Layer Exposed Amount of bleeding with debridement: Mild Bleeding Controlled with: Pressure Patient tolerated procedure: Patient tolerated procedure well
[2020-12-09 08:08] VITALS: BP 150/80; PULSE 92; RESP 18; TEMP 36.6; BMI 25.6
--- NOTE | 2020-12-09 08:49 | PN.PCM_ITS ---
History of Present Illness Date of Service: 12/09/20 Chief Complaint: Non healing right foot ulcer History of Wound: Mr. Fregoso is a 35-year-old who was referred here by his primary care physician due to nonhealing right foot ulcer. Sustained ulcer in August from frostbite. He states that he has tried to manage it at home however area left has shown no significant improvement. Most of the ulcer is healed. History of diabetes however lost a significant amount of weight and is currently not on any medication. Maintains a very active lifestyle. Denies chills, fever otherwise feeling of unwell. Subjective Subjective No new concerns at this time. Improvement noted. Objective Data Objective Data Vital Signs: Vital Signs Temp Pulse Resp BP 98 F 92 18 150/80 H 12/09/20 08:08 12/09/20 08:08 12/09/20 08:08 12/09/20 08:08 Weight: 168 lb 9.299 oz Body Mass Index (BMI) 25.6 Charges/Coding Procedures Integumentary 111xxx-113xx: [id number] Antoin[place] subq tissue 20 sq cm/< Physical Exam Const alert, oriented x3 and no apparent distress General Appearance: cooperative, comfortable and well kempt HEENT normocephalic and hearing grossly normal bilaterally Head and Scalp: normal to inspection, normocephalic and atraumatic Eyes EOMs intact bilaterally Neck full ROM and supple General: normal visual inspection Resp normal respiratory effort Effort and Inspection: able to speak in complete sentences Skin Wounds: wounds noted Neuro oriented x3, CN's II-XII intact bilaterally and moves all extremities Debridement Note Debridement Note Post-Debridement Measurements and Additional Note: Post-Debridement Measurements/Treatment - Nurse 1 - General Ulcer Assessment Start: 11/25/20 07:58 Freq: Status: Active Protocol: TRA.LOWISELAT Activity Type Activity Date Activity User E-Sign Co-Sign Detail Recorded Client Recorded Date Recorded By Document 11/25/20 07:58 PL [id number] 11/25/20 08:04 PL Document 12/09/20 08:08 DL [id number] 12/09/20 08:13 DL 11/25/20 12/09/20 07:58 08:08 - Today's Visit Information Type of service Follow-up Visit Follow-up Visit (Physician/WEB DATABASE DEVELOPER (Physician/WEB DATABASE DEVELOPER ) ) Arrival Mode Ambulatory Ambulatory Transfer Assistance Manual None Patient Identification Verified (Name & Yes Yes ) Patient Requires Transmission-Based No No Precautions Safety Precautions NA Height and Weight Body Mass Index (BMI) 25.6 25.6 BMI Classification Overweight Overweight Vital Signs Temperature (97.8 F-99.1 F) 97.1 F L 98 F Temperature Source Temporal Temporal Pulse Rate (60-100) 81 92 Pulse Location Monitor Respiratory Rate (12-18) 18 18 Respiratory rate source Observation Blood Pressure (90/60-120/80) 174/83 H 150/80 H Blood Pressure Mean (mm Hg) 113 103 Source Monitor History Since Last Visit- (Skip if this is Patient's initial visit) Have you changed medications since your No No last visit? Any new allergies or adverse reactions No No Had a fall/change in ADL's that may No No increase risk of falls Signs or symptoms of abuse and/or No No neglect since last visit Have you been in the hospital since your No No last visit? Has dressing in place as prescribed Yes Yes Has compression in place as prescribed N/A N/A Has offloadiing in place as prescribed N/A N/A Experienced any changes in pain level or No No management Pain Scale: 0-10 Numeric Is Patient Pain Free? Yes Yes WC - Nurse 1 - General Ulcer Measurement Start: 11/25/20 07:58 Freq: Status: Active Protocol: Activity Type Activity Date Activity User E-Sign Co-Sign Detail Recorded Client Recorded Date Recorded By Document 11/25/20 07:58 PL [id number] 11/25/20 08:04 PL Document 12/09/20 08:08 DL [id number] 12/09/20 08:13 DL 11/25/20 12/09/20 07:58 08:08 Wound Center Nurse 1 #1 R Dorsal -Combined with other wound No -Current Size (cm) - Length 0.5 0.3 -Current Size (cm) - Width 0.3 0.4 -Current Size (cm) - Depth 0.2 0.1 -Total Square Cm 0.15 0.12 -Photo Taken No No -Epithelialization None Present -Tunneling No -Undermining/Tunneling No -Exudate Amt Medium None Present -Exudate Type Serosanguineous -Wound Margin Distinct, Outline Attached -Granulation Amt None Present (0 Small (1-33%) %) -Granulation Quality [place] -Necrosis Amt Medium (34-66%) Small (1-33%) -Necrotic Tissue Type Adherent Slough Adherent Slough -Structure Exposed N/A -Texture (Leela-wound Skin Appearance) Scarring -Moisture (Leela-wound Skin Appearance) No Abnormality -Color (Leela-wound Skin Appearance) No Abnormality -Temperature (Leela-wound Skin No Abnormality No Abnormality Appearance) (Pt Warm) (Pt Warm) -Tenderness on Palpation (Leela-wound No No Skin Appearance) -Ulcer Cleansing Rinsed/ Wound Cleanser Irrigated with Saline -Foul Odor after Cleansing No No -Anesthetic Used 5% Lidocaine 5% Lidocaine Gel Gel - Nurse 2 - General Ulcer CM Notes Start: 11/25/20 07:58 Freq: Status: Active Protocol: Activity Type Activity Date Activity User E-Sign Co-Sign Detail Recorded Client Recorded Date Recorded By Document 11/25/20 08:22 MW [id number] 11/25/20 08:24 MW Document 12/09/20 08:44 MW [id number] 12/09/20 08:47 MW 11/25/20 12/09/20 08:22 08:44 Wound Center Nurse 2 #1 R Dorsal -Time 08:22 08:45 -Correct Patient Yes Yes -Correct Side, Site, Position Yes Yes -Correct Procedure Yes Yes -Procedure Performed Yes Yes -Type of Procedure Debridement Debridement -Clinical Debridement Subcutaneous Subcutaneous -Tissue Removed Subcutaneous Subcutaneous -Post Debridement (cm) - Length 0.4 0.3 -Post Debridement (cm) - Width 0.3 0.2 -Post Debridement (cm) - Depth 0.1 0.1 -Total Square (Post) (cm) 0.12 0.06 -Area of Debridement (cm) - Length 0.4 0.3 -Area of Debridement (cm) - Width 0.3 0.2 -Total Square (Area) (cm) 0.12 0.06 -Tunneling No No -Undermining/Tunneling No No -Circular Undermining No No -Wound/Ulcer Outcome Not Healed Not Healed -Ulcer Cleansing Rinsed/ Rinsed/ Irrigated with Irrigated with Saline Saline -Foul Odor after Cleansing No No -Bioengineered Tissue No No -Bleeding Controlled with Pressure Pressure -Offloading No No -Treatment Response Procedure Procedure Tolerated Well Tolerated Well -Debridement - Subq, 1st 20sq cm Yes Yes Pain Scale: 0-10 Numeric Is Patient Pain Free? Yes Yes - Nurse 3 - General Ulcer D/C NN Start: 11/25/20 07:58 Freq: Status: Active Protocol: Activity Type Activity Date Activity User E-Sign Co-Sign Detail Recorded Client Recorded Date Recorded By Document 11/25/20 08:35 PL [id number] 11/25/20 08:36 PL 11/25/20 08:35 Wound Care Nurse 3 #1 R Dorsal -Ulcer Cleansing Rinsed/ Irrigated with Saline -Foul Odor after Cleansing No -Primary Dressing Applied Promogran -Primary Dressing Covered/Secured with Dry Gauze, Secured with Tape -Promogran 1 Pain Scale: 0-10 Numeric Is Patient Pain Free? Yes Wound debrided: Right Foot ( Dorsal ) Type of Debridement: Excisional debridement Anesthesia Used: 4% Lidocaine Solution Depth: Down to and including healthy tissue and in the subcutaneous layer Percentage of wound debrided: 100 Instrument Used: - (1mm) Tissue Removed: Slough and devitalized tissue Severity: Fat Layer Exposed Amount of bleeding with debridement: Mild Bleeding Controlled with: Pressure Patient tolerated procedure: Patient tolerated procedure well Assessment/Plan Assessment/Plan (1) Ulcer of right foot with fat layer exposed: CODE(S): Code(s): L97.512 - Non-pressure chronic ulcer of other part of right foot with fat layer exposed PLAN: Debridement done as documented above, procedure was well-tolerated. Improvement noted. Continue Promogran daily with Adaptic over top. Tubigrip for edema management. Elevate lower extremity when seated and in bed. Increase protein intake. His questions were answered and was advised to call with any further questions or concerns. Follow-up in a week. This note was generated with [employer] dictation software. It may contain incorrect words, spelling, and punctuation that were not noted in checking the note before signing.
[2020-12-16 08:50] VITALS: BP 166/78; PULSE 91; RESP 18; TEMP 36.4; BMI 25.6
--- NOTE | 2020-12-16 09:15 | PN.PCM_ITS ---
History of Present Illness Date of Service: 12/16/20 Chief Complaint: Non healing right foot ulcer History of Wound: Mr. Fregoso is a 35-year-old who was referred here by his primary care physician due to nonhealing right foot ulcer. Sustained ulcer in August from frostbite. He states that he has tried to manage it at home however area left has shown no significant improvement. Most of the ulcer is healed. History of diabetes however lost a significant amount of weight and is currently not on any medication. Maintains a very active lifestyle. Denies chills, fever otherwise feeling of unwell. Subjective Subjective No new concerns at this time. Very minimal area left. Objective Data Objective Data Vital Signs: Vital Signs Temp Pulse Resp BP 97.5 F L 91 18 166/78 H 12/16/20 08:50 12/16/20 08:50 12/16/20 08:50 12/16/20 08:50 Oxygen Delivery Method Room Air Weight: 168 lb 9.299 oz Body Mass Index (BMI) 25.6 Charges/Coding Visit Charges Office Visits / Consults: 07228 OV L3 Est Physical Exam Const alert, oriented x3 and no apparent distress General Appearance: cooperative, comfortable and well kempt HEENT normocephalic and hearing grossly normal bilaterally Head and Scalp: normal to inspection, normocephalic and atraumatic Eyes EOMs intact bilaterally Neck full ROM and supple General: normal visual inspection Resp normal respiratory effort Effort and Inspection: able to speak in complete sentences Skin Wounds: wounds noted Neuro oriented x3, CN's II-XII intact bilaterally and moves all extremities Debridement Note Debridement Note Post-Debridement Measurements and Additional Note: Post-Debridement Measurements/Treatment - Nurse 1 - General Ulcer Assessment Start: 11/25/20 07:58 Freq: Status: Active Protocol: TRA.LOWEXT Activity Type Activity Date Activity User E-Sign Co-Sign Detail Recorded Client Recorded Date Recorded By Document 11/25/20 07:58 PL [id number] 11/25/20 08:04 PL Document 12/09/20 08:08 DL [id number] 12/09/20 08:13 DL Document 12/16/20 08:50 MT [id number] 12/16/20 08:52 MT 11/25/20 12/09/20 12/16/20 07:58 08:08 08:50 - Today's Visit Information Type of service Follow-up Visit Follow-up Visit Follow-up Visit (Physician/PANTOGRAPH II ENGRAVER (Physician/PANTOGRAPH II ENGRAVER (Physician/PANTOGRAPH II ENGRAVER ) ) ) Arrival Mode Ambulatory Ambulatory Ambulatory Transfer Assistance Manual None Accompanied by SELF Patient Identification Verified (Name & Yes Yes Yes ) Patient Requires Transmission-Based No No Precautions Safety Precautions NA Blood Sugar Stated by Patient Height and Weight Body Mass Index (BMI) 25.6 25.6 25.6 BMI Classification Overweight Overweight Overweight Vital Signs Temperature (97.8 F-99.1 F) 97.1 F L 98 F 97.5 F L Temperature Source Temporal Temporal Temporal Pulse Rate (60-100) 81 92 91 Pulse Location Monitor Monitor Respiratory Rate (12-18) 18 18 18 Respiratory rate source Observation Observation Oxygen Delivery Method Room Air Blood Pressure (90/60-120/80) 174/83 H 150/80 H 166/78 H Blood Pressure Mean (mm Hg) 113 103 107 Source Monitor Monitor Position Sitting Blood Pressure Location Left Arm History Since Last Visit- (Skip if this is Patient's initial visit) Have you changed medications since your No No No last visit? Any new allergies or adverse reactions No No No Had a fall/change in ADL's that may No No No increase risk of falls Signs or symptoms of abuse and/or No No No neglect since last visit Have you been in the hospital since your No No No last visit? Has dressing in place as prescribed Yes Yes Yes Has compression in place as prescribed N/A N/A Yes Has offloadiing in place as prescribed N/A N/A Yes Experienced any changes in pain level or No No management Left Footwear Regular Shoe Right Footwear Regular Shoe Pain Scale: 0-10 Numeric Is Patient Pain Free? Yes Yes WC - Nurse 1 - General Ulcer Measurement Start: 11/25/20 07:58 Freq: Status: Active Protocol: Activity Type Activity Date Activity User E-Sign Co-Sign Detail Recorded Client Recorded Date Recorded By Document 11/25/20 07:58 PL [id number] 11/25/20 08:04 PL Document 12/09/20 08:08 DL [id number] 12/09/20 08:13 DL Document 12/16/20 08:50 MT [id number] 12/16/20 08:52 MT 11/25/20 12/09/20 12/16/20 07:58 08:08 08:50 Wound Center Nurse 1 #1 R Dorsal -Combined with other wound No -Current Size (cm) - Length 0.5 0.3 0.1 -Current Size (cm) - Width 0.3 0.4 0.1 -Current Size (cm) - Depth 0.2 0.1 0.1 -Total Square Cm 0.15 0.12 0.01 -Photo Taken No No -Epithelialization None Present Large 67-100% -Tunneling No -Undermining/Tunneling No -Exudate Amt Medium None Present -Exudate Type Serosanguineous -Wound Margin Distinct, Flat & Intact Outline Attached -Granulation Amt None Present (0 Small (1-33%) Large (67-100%) %) -Granulation Quality [place] -Necrosis Amt Medium (34-66%) Small (1-33%) -Necrotic Tissue Type Adherent Slough Adherent Slough -Structure Exposed N/A -Texture (Leela-wound Skin Appearance) Scarring Assessed -Moisture (Leela-wound Skin Appearance) No Abnormality -Color (Leela-wound Skin Appearance) No Abnormality Assessed -Temperature (Leela-wound Skin No Abnormality No Abnormality No Abnormality Appearance) (Pt Warm) (Pt Warm) (Pt Warm) -Tenderness on Palpation (Leela-wound No No No Skin Appearance) -Ulcer Cleansing Rinsed/ Wound Cleanser Rinsed/ Irrigated with Irrigated with Saline Saline -Foul Odor after Cleansing No No No -Anesthetic Used 5% Lidocaine 5% Lidocaine 4% Lidocaine Gel Gel Solution Lower Limb Edema Present NA WC - Nurse 2 - General Ulcer CM Notes Start: 11/25/20 07:58 Freq: Status: Active Protocol: Activity Type Activity Date Activity User E-Sign Co-Sign Detail Recorded Client Recorded Date Recorded By Document 11/25/20 08:22 MW [id number] 11/25/20 08:24 MW Document 12/09/20 08:44 MW [id number] 12/09/20 08:47 MW 11/25/20 12/09/20 08:22 08:44 Wound Center Nurse 2 #1 R Dorsal -Time 08:22 08:45 -Correct Patient Yes Yes -Correct Side, Site, Position Yes Yes -Correct Procedure Yes Yes -Procedure Performed Yes Yes -Type of Procedure Debridement Debridement -Clinical Debridement Subcutaneous Subcutaneous -Tissue Removed Subcutaneous Subcutaneous -Post Debridement (cm) - Length 0.4 0.3 -Post Debridement (cm) - Width 0.3 0.2 -Post Debridement (cm) - Depth 0.1 0.1 -Total Square (Post) (cm) 0.12 0.06 -Area of Debridement (cm) - Length 0.4 0.3 -Area of Debridement (cm) - Width 0.3 0.2 -Total Square (Area) (cm) 0.12 0.06 -Tunneling No No -Undermining/Tunneling No No -Circular Undermining No No -Wound/Ulcer Outcome Not Healed Not Healed -Ulcer Cleansing Rinsed/ Rinsed/ Irrigated with Irrigated with Saline Saline -Foul Odor after Cleansing No No -Bioengineered Tissue No No -Bleeding Controlled with Pressure Pressure -Offloading No No -Treatment Response Procedure Procedure Tolerated Well Tolerated Well -Debridement - Subq, 1st 20sq cm Yes Yes Pain Scale: 0-10 Numeric Is Patient Pain Free? Yes Yes WC - Nurse 3 - General Ulcer D/C NN Start: 11/25/20 07:58 Freq: Status: Active Protocol: Activity Type Activity Date Activity User E-Sign Co-Sign Detail Recorded Client Recorded Date Recorded By Document 11/25/20 08:35 PL [id number] 11/25/20 08:36 PL 11/25/20 08:35 Wound Care Nurse 3 #1 R Dorsal -Ulcer Cleansing Rinsed/ Irrigated with Saline -Foul Odor after Cleansing No -Primary Dressing Applied Promogran -Primary Dressing Covered/Secured with Dry Gauze, Secured with Tape -Promogran 1 Pain Scale: 0-10 Numeric Is Patient Pain Free? Yes No debridement was completed: No debridement was completed today Assessment/Plan Assessment/Plan (1) Ulcer of right foot with fat layer exposed: CODE(S): L97.512 - Non-pressure chronic ulcer of other part of right foot with fat layer exposed PLAN: Largely healed. Very very minimal area left. Continue moistened Promogran and adaptic daily x 2 weeks. Compression and leg elevation. His questions were answered and he was advised to call with any further questions or concerns. Discharge from the wound clinic. This note was generated with [employer] software. It may contain incorrect words, spelling, and punctuation that were not noted in checking the note before signing.
== END 2020-12-16 09:26 | disposition home or self-care (01) ==
LOC: WC 09:00
PROVIDERS: PCP Student in an Organized Health Care Education/Training Program; Visit Provider Internal Medicine
DX: L97.512 Non-pressure chronic ulcer of other part of right foot with fat layer exposed (principal); T33.821S Superficial frostbite of right foot, sequela; X31.XXXS Exposure to excessive natural cold, sequela; E11.9 Type 2 diabetes mellitus without complications; R60.9 Edema, unspecified; E66.3 Overweight; Z68.25 Body mass index [BMI] 25.0-25.9, adult
CPT/HCPCS: 11042; 99213; G0463